=== PATIENT | female | born 1970 | race African-American/Black ===

== ENCOUNTER 2023-03-18 07:42 | Day surgery (SDC) | payer OTHER ==
[2023-03-15 12:48] VITALS: BMI 28.4
[2023-03-18] MEDS ORDERED: Lidocaine 1% PF 5 ML VIAL ONE (09:41)
[2023-03-18] MEDS ORDERED: PROPOFOL 40 ML ONE (09:41)
[2023-03-18] MEDS ORDERED: PROPOFOL 20 ML ONE (10:45)
== END 2023-03-18 11:23 | disposition home or self-care (01) ==
LOC: CSHSDC 07:42
PROVIDERS: ATTEND Internal Medicine Gastroenterology
PROC: 0DBH8ZX Excision of Cecum, Via Natural or Artificial Opening Endoscopic, Diagnostic (ICD-10-PCS; principal; 2023-03-18)
DX: Z12.11 Encounter for screening for malignant neoplasm of colon (principal); K52.9 Noninfective gastroenteritis and colitis, unspecified; K57.30 Diverticulosis of large intestine without perforation or abscess without bleeding; K64.8 Other hemorrhoids; I12.0 Hypertensive chronic kidney disease with stage 5 chronic kidney disease or end stage renal disease; N18.6 End stage renal disease; Z88.5 Allergy status to narcotic agent; Z99.2 Dependence on renal dialysis; Z90.49 Acquired absence of other specified parts of digestive tract; Z95.1 Presence of aortocoronary bypass graft; Z95.4 Presence of other heart-valve replacement; Z79.899 Other long term (current) drug therapy
CPT/HCPCS: 88305; J2704